=== PATIENT | female | born 1955 | race African-American/Black ===

== ENCOUNTER 2017-01-15 23:57 | Emergency (ER) | payer BC, OTHER ==
[2017-01-16] MEDS ORDERED: HYDROCODONE/ACETAMINOPHEN 5-325 MG 6 TAB/DSPK PO PRN ×2 (04:48→05:37)
--- NOTE | 2017-01-16 04:57 | ER Document Report ---
ED Extremity Problem, Upper - General Chief Complaint: Arm Pain Stated Complaint: ARM/SHOULDER PAIN Time Seen by Provider: 01/16/17 04:33 Notes: Patient is a 61-year-old female that comes emergency department for chief complaint of 4 days of worsening pain in the back left shoulder and upper back with pains going down her left arm. She states she does lift her grand daughter frequently but does not remember any specific injuries to her arm. She reports pain with range of motion of the arm and shoulder. She states that the other night she felt like she had to lift her arm with her other hand. She states that while waiting she feels like she has started to hurt over her entire body. She denies fever, nausea, vomiting, shortness of breath, specific chest pain, or any other symptoms. She is treated for high blood pressure. Patient states she has been taking regular ibuprofen without symptom improvement or resolution. TRAVEL OUTSIDE OF THE [place] IN LAST 30 DAYS: No - Related Data Allergies/Adverse Reactions: No Known Allergies Allergy (Verified 01/16/17 04:50) Past Medical History - General Information source: Patient - Social History Smoking Status: Never Smoker Frequency of alcohol use: None Drug Abuse: None Lives with: Family Family History: Reviewed & Not Pertinent Patient has suicidal ideation: No Patient has homicidal ideation: No - Past Medical History Cardiac Medical History: Reports: Hx Hypercholesterolemia, Hx Hypertension Renal/ Medical History: Denies: Hx Peritoneal Dialysis Past Surgical History: Reports: Hx Hysterectomy - Immunizations Hx Diphtheria, Pertussis, Tetanus Vaccination: Yes Review of Systems - Review of Systems Constitutional: No symptoms reported EENT: No symptoms reported Cardiovascular: No symptoms reported Respiratory: No symptoms reported Gastrointestinal: No symptoms reported Genitourinary: No symptoms reported Female Genitourinary: No symptoms reported Musculoskeletal: See HPI Skin: No symptoms reported Hematologic/Lymphatic: No symptoms reported Neurological/Psychological: No symptoms reported Physical Exam - Vital signs Vitals: Temp Pulse Resp BP Pulse Ox 98.1 F 62 18 152/97 H 100 01/16/17 00:18 01/16/17 00:18 01/16/17 00:18 01/16/17 00:18 01/16/17 00:18 Interpretation: Normal - General General appearance: Appears well, Alert In distress: None - HEENT Head: Normocephalic, Atraumatic Eyes: Normal Pupils: PERRL - Respiratory Respiratory status: No respiratory distress Chest status: Nontender Breath sounds: Normal Chest palpation: Normal - Cardiovascular Rhythm: Regular Heart sounds: Normal auscultation Murmur: No - Abdominal Inspection: Normal Distension: No distension Bowel sounds: Normal Tenderness: Nontender Organomegaly: No organomegaly - Back Back: Normal, Nontender. No: Tender, Vertebra tenderness - Extremities General upper extremity: Other - Patient is very tender with tight muscles in her left trapezius area, also generally tender over the tricep, bicep of the left arm. Full range of motion is still intact although performed with some pain. Normal strength, normal distal neurovascular exam. Normal examination otherwise. General lower extremity: Normal inspection, Nontender, Normal color, Normal ROM , Normal temperature, Normal weight bearing. No: Cooper's sign - Neurological Neuro grossly intact: Yes Cognition: Normal Orientation: AAOx4 [place] Coma Scale Eye Opening: Spontaneous [place] Coma Scale Verbal: Oriented Jack Coma Scale Motor: Obeys Commands [place] Coma Scale Total: 15 Speech: Normal Motor strength normal: LUE, RUE, LLE, RLE Sensory: Normal - Psychological Associated symptoms: Normal affect, Normal mood - Skin Skin Temperature: Warm Skin Moisture: Dry Skin Color: Normal Course - Re-evaluation Re-evalutation: EKG reviewed and shows sinus rhythm with no T-wave inversions or ST segment changes in consecutive leads. Patient with musculoskeletal complaints, on exam patient has definite musculoskeletal pain. Treating for pain, patient given a work note although she states she needs working she does not believe she will use it, given nonsedating muscle relaxer to use during the day, discussed primary care follow-up, discussed return precautions, patient states understanding and agreement - Vital Signs Vital signs: Temp Pulse Resp BP Pulse Ox 98 F 72 20 128/68 H 100 01/16/17 05:25 01/16/17 05:25 01/16/17 05:25 01/16/17 05:25 01/16/17 05:25 Discharge - Discharge Clinical Impression: Left arm pain Left shoulder pain Qualifiers: Chronicity: acute Qualified Code(s): M25.512 - Pain in left shoulder Condition: Stable Disposition: HOME, SELF-CARE Additional Instructions: Exam is consistent with strain of the rotator cuff and also muscular spasm of the trapezius muscle. Take the muscle relaxer as prescribed, continue ibuprofen, drink plenty of fluids, apply heat to your shoulder/arm. Take the pain medication if needed, especially at night, take the stool softener if you do. Follow up with primary care. Return to the ED for any concerning symptoms. Prescriptions: Docusate Sodium [Colace 100 mg Capsule] 100 mg PO DAILY #30 capsule Hydrocodone/Acetaminophen [[place] 5-325 mg Tablet] 1 - 2 tab PO ASDIR #15 tablet Metaxalone [Skelaxin] 800 mg PO ASDIR PRN #30 tablet PRN Reason: Forms: Return to Work
[2017-01-16 05:26] VITALS: BP 128/68
[2017-01-16] MEDS ORDERED: HYDROCODONE/ACETAMINOPHEN 5-325 MG 6 TAB/DSPK ONE (05:40)
--- NOTE | 2017-01-17 12:59 | EKG REPORT ---
SEVERITY:- NORMAL ECG - SINUS RHYTHM : Confirmed by: June Palma MD 17-Jan-2017 12:59:14
== END 2017-01-16 05:25 | disposition home or self-care (01) ==
LOC: ER 23:57
DX: M79.602 Pain in left arm (principal); M25.512 Pain in left shoulder; E78.00 Pure hypercholesterolemia, unspecified; I10 Essential (primary) hypertension; Z90.710 Acquired absence of both cervix and uterus
CPT/HCPCS: 93005; 93010; 99283

== ENCOUNTER → 2017-03-17 | Outpatient (CLI) | payer OTHER ==
--- NOTE | 2017-03-19 15:09 | RADIOLOGY REPORT (SQ) ---
EXAM DESCRIPTION: C SP 3 VWS OR LESS COMPLETED DATE/TIME: 03/17/2017, 1517 hours REASON FOR STUDY: Cervicalgia COMPARISON: No previous TECHNIQUE: Cervical spine three views LIMITATIONS: None FINDINGS: Normal bone density. On the lateral view the cervical spine is seen down to the C7-T1 level. There is moderate disc space loss of height and anterior and posterior osteophyte formation at C5-6. There is mild disc space narrowing and mild anterior and posterior osteophyte formation at C4-5, and C6-7. No prevertebral soft tissue swelling, or gross fracture or malalignment. AP and odontoid views are unremarkable. IMPRESSION: Degenerative disc changes most pronounced at C5-6, but also seen at C4-5 and C6-7.
== END ==
LOC: OD 15:07
PROVIDERS: ATTEND Internal Medicine Cardiovascular Disease
DX: M54.2 Cervicalgia (principal)
CPT/HCPCS: 72040

== ENCOUNTER → 2017-05-31 | Outpatient (CLI) | payer OTHER ==
--- NOTE | 2017-05-31 16:19 | RADIOLOGY REPORT (SQ) ---
EXAM DESCRIPTION: CERV SP 4 OR 5 VIEWS COMPLETED DATE/TIME: 05/31/2017 3:43 pm REASON FOR STUDY: CERVICAL RADICULOPATHY, ACUTE (M54.12) M54.12 RADICULOPATHY, CERVICAL REGION COMPARISON: None. NUMBER OF VIEWS: Five views. TECHNIQUE: AP, lateral, obliques and odontoid radiographic images acquired of the cervical spine. LIMITATIONS: None. FINDINGS: MINERALIZATION: Normal. ALIGNMENT: Anatomic. VERTEBRAE: Vertebral bodies of normal height. DISCS: Disc spaces are narrowed from C4 the C7 with anterior osteophytes from C4- C6. FORAMINA: No osteophytes or foraminal narrowing. LATERAL AND POSTERIOR ELEMENTS: Facets, lateral masses and spinous processes without significant find ings. HARDWARE: None in the spine. SOFT TISSUES: No masses or calcifications. Lung apices clear. OTHER: No other significant finding. IMPRESSION: Degenerative disc disease and spondylosis. TECHNICAL DOCUMENTATION: JOB ID: [id number] [employer]- All Rights Reserved
== END ==
LOC: RAD 15:13
PROVIDERS: ATTEND Family Medicine
DX: M54.12 Radiculopathy, cervical region (principal)
CPT/HCPCS: 72050

== ENCOUNTER → 2017-07-21 | Outpatient (CLI) | payer OTHER ==
--- NOTE | 2017-07-21 10:40 | RADIOLOGY REPORT (SQ) ---
EXAM DESCRIPTION: HIPS BILATERAL COMPLETED DATE/TIME: 07/21/2017 8:26 am REASON FOR STUDY: PAIN IN RIGHT HIP,PAIN IN LEFT HIP M25.551 PAIN IN RIGHT HIP M25.552 PAIN IN LEF T HIP M54.5 LOW BACK PAIN COMPARISON: None. NUMBER OF VIEWS: Two views TECHNIQUE: AP pelvis and additional frog-leg view of both hips. LIMITATIONS: None. FINDINGS: MINERALIZATION: Normal. HIPS: No acute fracture or dislocation. No worrisome bone lesions. No significant joint space narrow ing or bony spurring. PELVIS AND SACRUM: No acute fracture or dislocation. No worrisome bone lesions. Benign bony spurrin g at the anterior superior and anterior inferior iliac spines. PUBIS AND ISCHIUM: No acute fracture. LOWER LUMBAR SPINE: No significant findings as visualized. SOFT TISSUES: No findings. OTHER: No other significant finding. IMPRESSION: NEGATIVE STUDY OF THE HIPS. BENIGN BONY SPURRING ALONG THE BILATERAL ANTERIOR SUPERIOR AND ANTERIOR INFERIOR ILIAC SPINES TECHNICAL DOCUMENTATION: JOB ID: [id number] [employer]- All Rights Reserved
--- NOTE | 2017-07-21 10:42 | RADIOLOGY REPORT (SQ) ---
EXAM DESCRIPTION: LUMBAR SPINE COMPLETE COMPLETED DATE/TIME: 07/21/2017 8:26 am REASON FOR STUDY: LOW BACK PAIN M25.551 PAIN IN RIGHT HIP M25.552 PAIN IN LEFT HIP M54.5 LOW BACK PAIN COMPARISON: None. NUMBER OF VIEWS: Five views including obliques. TECHNIQUE: AP, lateral, oblique, and sacral radiographic images acquired of the lumbar spine. LIMITATIONS: None. FINDINGS: MINERALIZATION: Normal. SEGMENTATION: Normal. No transitional anatomy. ALIGNMENT: Normal. VERTEBRAE: Maintained height. No fracture or worrisome bone lesion. DISCS: Preserved height. No significant osteophytes or end plate irregularity. POSTERIOR ELEMENTS: Pedicles and facets are intact. No pars defect or posterior arch defects. Very mild left facet arthropathy at L5-S1. HARDWARE: None in the spine. PARASPINAL SOFT TISSUES: Normal. PELVIS: Intact as visualized. No fractures or worrisome bone lesions. SI joints intact. OTHER: No other significant finding. IMPRESSION: MILD LEFT L5-S1 FACET ARTHROPATHY. OTHERWISE, NORMAL 5 VIEW LUMBAR SPINE. TECHNICAL DOCUMENTATION: JOB ID: [id number]- All Rights Reserved
== END ==
LOC: OD 08:00
PROVIDERS: ATTEND Family Medicine
DX: M25.551 Pain in right hip (principal); M25.552 Pain in left hip; M54.5 Low back pain
CPT/HCPCS: 72110; 73522

== ENCOUNTER → 2017-07-27 | Outpatient (CLI) | payer OTHER ==
--- NOTE | 2017-07-27 09:12 | RADIOLOGY REPORT (SQ) ---
EXAM DESCRIPTION: MRI CERVICAL SPINE WITHOUT COMPLETED DATE/TIME: 07/27/2017 8:43 am REASON FOR STUDY: M54.12 RADICULOPATHY, CERVICAL REGION M54.12 RADICULOPATHY, CERVICAL REGION COMPARISON: None. TECHNIQUE: Sagittal and Axial imaging includes T1, T2, STIR and gradient echo sequences. LIMITATIONS: None. FINDINGS: ALIGNMENT: Normal. VERTEBRAE: Intact. BONE MARROW: Reactive endplate changes C5-6. DISCS: Loss of T2 signal C5-6. Prominent osteophytes. HARDWARE: None in the spine. CORD AND BASE OF BRAIN: Normal in size and signal intensity. SOFT TISSUES: No soft tissue masses. C1-C2: No significant spinal stenosis. C2-C3: No significant spinal stenosis or exit foraminal stenosis. C3-C4: No significant spinal stenosis or exit foraminal stenosis. Facet arthropathy. C4-C5: No significant spinal stenosis or exit foraminal stenosis. C5-C6: Prominent disc osteophyte complex with flattening of the anterior thecal sac. Moderate narrow ing of the exit foramina. C6-C7: Disc osteophyte complex with mild narrowing of the left exit foramina. C7-T1: No significant spinal stenosis or exit foraminal stenosis. UPPER THORACIC: Incompletely imaged. No significant spinal stenosis or exit foraminal stenosis. OTHER: No other significant finding. IMPRESSION: Cervical spondylosis most prominent C5-6 with moderate narrowing of the exit foramina an d mild central canal stenosis. TECHNICAL DOCUMENTATION: JOB ID: [id number] [employer]- All Rights Reserved
== END ==
LOC: RAD 08:42
PROVIDERS: ATTEND Family Medicine
DX: M54.12 Radiculopathy, cervical region (principal); M48.02 Spinal stenosis, cervical region
CPT/HCPCS: 72141

== ENCOUNTER → 2017-08-17 | Outpatient (CLI) | payer OTHER ==
--- NOTE | 2017-08-17 12:09 | RADIOLOGY REPORT (SQ) ---
EXAM DESCRIPTION: CERV SP 3 VIEW OR LESS COMPLETED DATE/TIME: 08/17/2017 9:40 am REASON FOR STUDY: OTHER CERVICAL DISC DEGENERATION (M50.30) M50.30 OTHER CERVICAL DISC DEGENERATION , UNSP CERVICAL REGIO COMPARISON: Cervical spine plain films 05/31/2017 MRI cervical spine 07/27/2017 NUMBER OF VIEWS: Three views TECHNIQUE: Lateral neutral, lateral flexion, lateral extension radiographic images acquired of the c ervical spine. LIMITATIONS: Limited view of the C7-T1 disc space due to the patient's shoulders FINDINGS: MINERALIZATION: Normal. ALIGNMENT: Anatomic. VERTEBRAE: Vertebral bodies of normal height. DISCS: Moderate disc space loss of height at C5-6, mild disc space loss of height at C4-5 and C6-7. Mild anterior osteophyte formation at these levels HARDWARE: None in the spine. SOFT TISSUES: No masses or calcifications. Lung apices clear. OTHER: No other significant finding. IMPRESSION: Degenerative disc changes at C4-5 and C5-6. No instability on flexion/extension TECHNICAL DOCUMENTATION: JOB ID: [id number]- All Rights Reserved
== END ==
LOC: RAD 09:10
PROVIDERS: ATTEND Orthopaedic Surgery Sports Medicine
DX: M50.30 Other cervical disc degeneration, unspecified cervical region (principal)
CPT/HCPCS: 72040

== ENCOUNTER → 2018-05-16 | Outpatient (CLI) | payer OTHER | LOC: OD 10:12 | PROVIDERS: ATTEND Otolaryngology | DX: J30.9 Allergic rhinitis, unspecified (principal) | CPT/HCPCS: 36415; 82785; 86003 ==

== ENCOUNTER → 2018-12-01 | Outpatient (CLI) | payer OTHER ==
--- NOTE | 2018-12-01 10:12 | RADIOLOGY REPORT (SQ) ---
EXAM DESCRIPTION: ANDRADE SWALLOW COMPLETED DATE/TIME: 12/01/2018 8:27 am REASON FOR STUDY: DYSPHAGIA (R13.10) R13.10 DYSPHAGIA, UNSPECIFIED bolus sensation COMPARISON: None. TECHNIQUE: Videofluoroscopic swallowing examination was performed in conjunction with speech patholo gy. Videofluoroscopic imaging was obtained and reviewed and these are the findings: RADIATION DOSE: 1.1 minutes of fluoroscopy was used. 1 images saved to PACS. LIMITATIONS: None FINDINGS: The patient was brought into the fluoro room and placed upright on a modified barium swall ow chair. The patient was then given multiple consistencies mixed with barium to swallow under live fluoroscopic video guidance. According to the Speech Pathologist there was no penetration or aspirat ion. Mild cricopharyngeal hypertrophy. IMPRESSION: NO EVIDENCE OF PENETRATION OR ASPIRATION. PLEASE SEE SPEECH PATHOLOGIST REPORT FOR OTHER FINDINGS AND RECOMMENDATIONS. COMMENT: Quality ID [id number]: Final reports for procedures using fluoroscopy that document radiation exp osure indices, or exposure time and number of fluorographic images (if radiation exposure indices are not available) TECHNICAL DOCUMENTATION: JOB ID: [id number] [employer]- All Rights Reserved Reading location - IP/workstation name: [email or web address]
--- NOTE | 2018-12-01 12:18 | ST Modified Barium Swallow ---
Recommendation - Recommendations Recommendations: No oral or phagyneal phase dysphagia seen. Some restriction of upper esophagus seen. Medical Diagnoses - Medical Diagnoses Medical Diagnosis Description & ICD-10 Code(s): R13.10 Other Medical Diagnoses/Co-Morbidities: per patient report: Patient has degenerative arthritis in her neck, reflux. ST Modified Barium Swallow - General Date: 12/01/18 Referring Physician: Dr. Lucas Risks/Precautions: None Date of Onset: 06/02/18 - approximate onset date - History History obtained from: Patient -: Medical - Per patient report: Swallowing difficulties for approximately 6 months. Reports difficulty swallowing pills and some meats, saying they "get stuck". Medications: per patient report: lisinopril, levostatin, antidepressant, fish oil, vitamin d and c. No current reflux medications. Allergies: none reported - Functional Status Prior Functional Status: INDEPENDENT: feeding Current Functional Limitations: feeding - Subjective Patient/caregiver goal(s): better swallow Cognitive-Linguistic Function: WNL Speech Intelligibility: WNL Current Nutritional Means: PO Current PO diet: Regular Current symptoms: c/o Globus sensation Pain: Patient reports, 11/04 - Objective Assessment: Upright, Left Lateral - Food Trials Used Food trials used: Thin liquids, Pureed, Regular The patient: Was Able to Self Feed - Oral-Motor Skills Dentition: Full Velo-pharyngeal function: Unremarkable Laryngeal Function: clear voicing - Assessment Oral prep: Normal Labial closure: Adequate Leakage: None Mastication: Adequate Lingual Movement: Normal Oral stage: Normal for this Procedure - Pharyngeal Stage Initiation of Pharyngeal Stage Reflex: Normal Decreased laryngeal elevation: No Reduced Velopharyngeal Closure: no Reduced pressure generation: No reduced tongue-based retraction: No Pre-swallow pooling in valleculae: None Pre-Swallow pooling in pyriforms: None Reduced Thyro-Hyoid approximation: No Reduced epiglottic excursion: No Reduced pharyngeal peristalsis/contraction: No Post-swallow residulas vallecular: None Post-Swallow residuals in pyriforms: None Reduced Cricopharyngeal opening: Yes - Esophageal Stage Esophageal Stage: tissue prominence at approximately C5, restricted movement of solids, however, still cleared in timely fashion for study. - Fall Risk Assessment Medications/Conditions that increase fall risks include: Antidepressants, sedatives, anti-arrhythmic, diuretic, benzodiazipenes, neuroleptics. BP regulation problems, cardiac problems, balance or gait deficits, neurological problems. Is patient considered at risk for falls: no Fall Risk Actions Taken: No action needed - Behavioral Observations During evaluation process patient: was pleasant, was cooperative, able to answer questions - Treatment / Educational Needs: Treatment/Education Needs: Treatment consisted of patient education on the role of the Speech Pathologist. Patient's plan of care and golas were communicated as well as scheduling and attendance policies. Recommendations for initial home program were shared. Patient demonstrated understanding and verbalized agreement. - Impression/Summary Laryngeal Penetration: No Tracheal Aspiration: no Patient presents with: Normal swallow at eval Risk of Aspiration: Minimal - Recommendations Solid diet recommendations: Regular Liquid Diet Modification: Thin Dysphagia therapy with WIND INSTRUMENT REPAIRER: no Reflux Precautions: Taught to Patient Recommended techniques: Fully Upright During Meal, Alternate Bites/Sips Information, Precautions and Recommendations: Patient (Written), Patient (Verbal) - Time Total Time: 25 - Plan of Care Strategies to optimize patient understanding include:: ongoing assessment of educational needs, implementation of educational strategies, and re-education. - - -: Thank you for the opportunity to work with this patient and his/her family. Should you have any questions about this patient's plan or progress, I can be reached at [phone].
== END ==
LOC: RAD 07:23
PROVIDERS: ATTEND Otolaryngology
DX: R13.10 Dysphagia, unspecified (principal)
CPT/HCPCS: 74230